=== PATIENT | male | born 1990 | race Caucasian/White ===

== ENCOUNTER 2016-05-31 10:10 | Emergency (ER) | payer OTHER ==
[~2016-05-31] VITALS: Ht 175.3 cm; Wt 52.2 kg
--- NOTE | ~2016-05-31 | EKG ---
[place] [address] [place] [address] ELECTROCARDIOGRAM REPORT Name: DOMINIK PAULA Room #: DEP Lan#: [id number] Admission: 05/31/16 Attend Phys: Discharge: 05/31/16 Date of : 89 Report #: [id number] THIS REPORT FOR: //name// [facility] Test Date: 2016-05-31 Test Time: 10:14:44 Pat Name: DOMINIK PAULA Department: Room: Gender: M [employer] Hel[employer]: ARTURO : 1990 Requested By: Nadia Mcdaniels Order Number: [id number] MD: Judah Archibald Measurements Intervals [place] Rate: 102 P: 84 MO: 126 QRS: 94 QRSD: 93 T: 28 QT: 349 QTc: 455 Interpretive Statements Sinus tachycardia Right atrial enlargement Borderline right axis deviation RSR' in V1 or V2, probably normal variant Baseline wander in lead(s) I,aVR No previous ECG available for comparison Electronically Signed On 05-31-2016 13:40:23 CDT by Judah Archibald [email or web address] <ELECTRONICALLY SIGNED> By: Judah Archibald MD 05/31/16 1340 1014 1014 Judah Archibald MD /PAULINE
[~2016-05-31 10:10] MED LIST: NAPROSYN500 MG PO; NOHOMEMEDICATIONS; PERCOCET 5-3251 EACH PO; XANAX 0.25 MG0.25 MG PO
[2016-05-31] MEDS ORDERED: TYLENOL325 MG PO (10:29)
[2016-05-31 10:39] LABS: ABSOLUTE NEUTROPHILS 5.2 thou/uL (1.4-8.2); BASOPHILS 0.7 % (0.0-2.0); EOSINOPHILS 3.5 % (0.0-3.0); HEMATOCRIT 48.5 % (42.0-52.0); HEMOGLOBIN 17.3 gm/dL (14.0-18.0); LYMPHOCYTES 29.1 % (24.0-44.0); MCHC 35.7 g/dL (28.0-37.0); MCV 89.7 fL (80.0-100.0); MONOCYTES 7.5 % (1.0-8.0); PLATELET COUNT 195 thou/uL (150-400); POLYS 59.2 % (36.0-66.0); RBC 5.41 mil/uL (4.50-6.00); RDW 13.7 % (10.5-14.5); WBC 8.8 thou/uL (4.0-11.0)
[2016-05-31 10:43] LABS: MANUAL DIFF NO
[2016-05-31 10:45] LABS: CALCIUM 9.4 mg/dL (8.5-10.1); CREATININE 0.9 mg/dL (0.6-1.3); POTASSIUM 3.6 mmol/L (3.5-5.1)
[2016-05-31] MEDS ORDERED: PREDNISONE 20 M20 MG PO (11:29)
[2016-05-31] MEDS ORDERED: XANAX 0.25 MG0.25 MG PO (11:33)
[2016-05-31] MEDS ORDERED: NORCO 5-325 TA1 EACH PO (11:33)
[2016-05-31 11:48] VITALS: BP 122/79
== END 2016-05-31 11:49 | disposition home or self-care (01) ==
LOC: ER 10:10
PROVIDERS: Emergency Medicine
DX: R07.89 Other chest pain (principal); G56.02 Carpal tunnel syndrome, left upper limb; M54.32 Sciatica, left side; Z88.0 Allergy status to penicillin

== ENCOUNTER 2017-12-08 11:44 | Emergency (ER) | payer OTHER ==
[~2017-12-08] VITALS: Ht 175.3 cm; Wt 54.4 kg
[~2017-12-08 11:44] MED LIST changes: +NORCO 5-325 TA1 EACH PO; +PREDNISONE 20 M20 MG PO; +TYLENOL325 MG PO
[2017-12-08 13:50] LABS: ABSOLUTE NEUTROPHILS 6.3 thou/uL (1.4-8.2); BASOPHILS 0.4 % (0.0-2.0); EOSINOPHILS 2.1 % (0.0-3.0); HEMATOCRIT 47.1 % (42.0-52.0); HEMOGLOBIN 16.5 gm/dL (14.0-18.0); LYMPHOCYTES 28.9 % (24.0-44.0); MCH 32.4 pg (26.0-34.0); MCHC 35.1 g/dL (28.0-37.0); MCV 92.3 fL (80.0-100.0); MONOCYTES 6.4 % (1.0-8.0); PLATELET COUNT 224 thou/uL (150-400); POLYS 62.2 % (36.0-66.0); RDW 13.2 % (10.5-14.5); WBC 10.1 thou/uL (4.0-11.0)
[2017-12-08 14:03] LABS: CALCIUM 9.5 mg/dL (8.5-10.1); CREATININE 0.9 mg/dL (0.7-1.3); POTASSIUM 3.8 mmol/L (3.5-5.1)
[2017-12-08] MEDS ORDERED: HYDROXYZINE HCL25 M2 PO (14:26)
[2017-12-08 14:35] VITALS: BP 124/88
== END 2017-12-08 18:20 | disposition home or self-care (01) ==
LOC: ER 11:44
PROVIDERS: Emergency Medicine
DX: R20.0 Anesthesia of skin (principal); F31.9 Bipolar disorder, unspecified; F41.9 Anxiety disorder, unspecified